=== PATIENT | female | born 1945 | race Caucasian/White ===

== ENCOUNTER → 2020-09-07 | Outpatient (CLI) | payer OTHER ==
[~2020-09-07] VITALS: Ht 152.4 cm; Wt 57.6 kg
== END ==
LOC: OPSV 12:42
DX: M81.0 Age-related osteoporosis without current pathological fracture (principal)
CPT/HCPCS: 96372

== ENCOUNTER → 2020-09-27 | Outpatient (CLI) | payer OTHER | LOC: KOH-I 09-08 10:30 | DX: Z87.891 Personal history of nicotine dependence (principal); R91.8 Other nonspecific abnormal finding of lung field | CPT/HCPCS: 71271 ==

== ENCOUNTER → 2021-03-16 | Outpatient (CLI) | payer OTHER ==
[~2021-03-16] VITALS: Ht 157.5 cm; Wt 57.6 kg
== END ==
LOC: OPSV 11:51
DX: M81.0 Age-related osteoporosis without current pathological fracture (principal)
CPT/HCPCS: 96372

== ENCOUNTER → 2021-03-20 | Outpatient (CLI) | payer OTHER | LOC: KOH-I 08:10 | DX: R91.8 Other nonspecific abnormal finding of lung field (principal); J21.9 Acute bronchiolitis, unspecified | CPT/HCPCS: 71250 ==

== ENCOUNTER → 2022-01-23 | Outpatient (CLI) | payer OTHER ==
[~2022-01-23] VITALS: Ht 157.5 cm; Wt 57.6 kg
== END ==
LOC: OPSV 11:00
DX: M81.0 Age-related osteoporosis without current pathological fracture (principal)
CPT/HCPCS: 96372

== ENCOUNTER → 2022-03-26 | Outpatient (CLI) | payer OTHER | LOC: CT 08:23 | DX: R63.4 Abnormal weight loss (principal) | CPT/HCPCS: Q9967 ==

== ENCOUNTER → 2022-03-29 | Outpatient (CLI) | payer OTHER | LOC: KOH-I 13:00 | DX: Z87.891 Personal history of nicotine dependence (principal) | CPT/HCPCS: 71271 ==